=== PATIENT | female | born 1995 | race Hispanic/Latino ===

== ENCOUNTER 2021-11-03 22:17 | Emergency (ER) | payer OTHER ==
[~2021-11-03] VITALS: Ht 152.4 cm; Wt 79.8 kg
[2021-11-03] MEDS ORDERED: HYDROXYZINE HCL25 MG PO (22:48)
[2021-11-03] MEDS ORDERED: PEPCID20 MG PO (22:48)
[2021-11-03] MEDS ORDERED: PREDNISONE20 MG PO (22:48)
== END 2021-11-03 23:01 | disposition home or self-care (01) ==
LOC: ER 22:52
DX: L50.9 Urticaria, unspecified (principal); Z98.84 Bariatric surgery status
CPT/HCPCS: 99282